=== PATIENT | female | born 1980 | race Two or more races ===

== ENCOUNTER 2016-11-23 14:29 | Emergency (ER) | payer MEDICAID ==
[~2016-11-23] VITALS: Ht 154.9 cm; Wt 72.6 kg
[2016-11-23 14:56] LABS: BASOPHILS # (AUTO) 0.1 /CMM (0.0-0.2); BASOPHILS % (AUTO) 0.6 % (0.0-2.0); DIFF TOTAL % 100 %; EOSINOPHILS # (AUTO) 0.1 /CMM (0.0-0.7); EOSINOPHILS % (AUTO) 1.7 % (0.0-6.0); HEMATOCRIT 39 % (33-45); HEMOGLOBIN 13.1 g/dL (11.5-14.8); LYMPHOCYTES # (AUTO) 2.4 /CMM (0.8-4.8); LYMPHOCYTES % (AUTO) 28.1 % (20.0-44.0); MEAN CORPUSCULAR HEMOGLOBIN 30 PG (26.0-33.0); MEAN CORPUSCULAR HGB CONC 33 g/dl (31.0-36.0); MEAN CORPUSCULAR VOLUME 91 fL (82-100); MONOCYTES # (AUTO) 0.6 /CMM (0.1-1.30); MONOCYTES % (AUTO) 7.1 % (2.0-12.0); NEUTROPHILS # (AUTO) 5.3 /CMM (1.8-8.9); NEUTROPHILS % (AUTO) 62.5 % (43.0-81.0); PLATELET COUNT (AUTO) 280 /CMM (150-450); RED BLOOD CELL COUNT(AUTO) 4.33 MIL/uL (4.0-5.2); WHITE BLOOD COUNT (AUTO) 8.5 K/uL (4.3-11.0)
[2016-11-23] MEDS ORDERED: IBUPROFEN 400 MG TABLET ONE (14:58)
[2016-11-23] MEDS: IBUPROFEN 400 MG TABLET PO ONE (15:02)
[2016-11-23 15:05] LABS: ANION GAP 13 (5-14); CALCIUM, SERUM 8.5 mg/dL (8.5-10.1); CARBON DIOXIDE 26 mmol/L (21-32); CHLORIDE 103 mmol/L (98-107); CREATININE 0.7 mg/dL (0.6-1.3); GFR 96 mL/min (>60); GLUCOSE 92 mg/dL (74-106); POTASSIUM 3.5 mmol/L (3.5-5.1); SODIUM SERUM 138 mmol/L (136-145); UREA NITROGEN, BLOOD 10 mg/dL (7-18)
[2016-11-23 15:15] LABS: INR 0.98 (0.87-1.13); PROTHROMBIN TIME 10.3 SECS (9.5-12.7); TROPONIN I < 0.017 ng/mL (0.00-0.056)
[2016-11-23 15:55] VITALS: BP 115/79
== END 2016-11-23 15:56 | disposition home or self-care (01) ==
LOC: ER 14:31
DX: M94.0 Chondrocostal junction syndrome [Tietze] (principal)
CPT/HCPCS: 36415; 71010; 80048; 84484; 85025; 85730; 93005; 99285; A4606; Z7610

== ENCOUNTER 2017-02-02 00:48 | Emergency (ER) | payer MEDICAID ==
[~2017-02-02] VITALS: Ht 152.4 cm; Wt 68.0 kg
[2017-02-02 00:53] VITALS: BP 136/90
[2017-02-02] MEDS ORDERED: IBUPROFEN 400 MG TABLET ONE (01:05)
[2017-02-02] MEDS ORDERED: IBUPROFEN 400 MG TABLET PO ONE (01:30)
== END 2017-02-02 01:16 | disposition home or self-care (01) ==
LOC: ER 00:49
DX: J06.9 Acute upper respiratory infection, unspecified (principal); B30.1 Conjunctivitis due to adenovirus; R51 Headache; G89.29 Other chronic pain; Z90.49 Acquired absence of other specified parts of digestive tract; Z98.890 Other specified postprocedural states
CPT/HCPCS: 99283; A4606; Z7610

== ENCOUNTER 2017-09-05 19:37 | Emergency (ER) | payer MEDICAID, OTHER ==
[~2017-09-05] VITALS: Ht 154.9 cm; Wt 68.0 kg
[2017-09-05 19:46] VITALS: BP 130/91
== END 2017-09-05 20:12 | disposition home or self-care (01) ==
LOC: ER 19:41
DX: J06.9 Acute upper respiratory infection, unspecified (principal)
CPT/HCPCS: 99281; A4606; Z7610; Z7502

== ENCOUNTER 2020-05-24 15:04 | Emergency (ER) | payer OTHER ==
[~2020-05-24] VITALS: Ht 154.9 cm; Wt 65.8 kg
--- NOTE | 2020-05-24 15:21 | NUR ---
PT TO ER BED 18 C/O FEVER, SOB AND HEADACHE FOR THE PAST 3 DAYS. PT IS CONCERN ABOUT COVID19 INFECTION. PT WORKS [employer]. [employer]. STABLE VITALS. AWAITING MD MCBRIDE.
--- NOTE | 2020-05-24 15:44 | NUR ---
DR OSORIO AT BEDSIDE FOR EVAL.
[2020-05-24 15:57] LABS: BASOPHILS # (AUTO) 0.1 /CMM (0.0-0.2); BASOPHILS % (AUTO) 0.6 % (0.0-2.0); EOSINOPHILS % (AUTO) 0.8 % (0.0-6.0); HEMATOCRIT 42 % (33-45); HEMOGLOBIN 13.8 g/dL (11.5-14.8); LYMPHOCYTES # (AUTO) 1.5 /CMM (0.8-4.8); LYMPHOCYTES % (AUTO) 16.6 % (20.0-44.0); MEAN CORPUSCULAR HGB CONC 33 g/dl (31.0-36.0); MEAN CORPUSCULAR VOLUME 98 fL (82-100); MONOCYTES # (AUTO) 0.8 /CMM (0.1-1.30); MONOCYTES % (AUTO) 8.8 % (2.0-12.0); NEUTROPHILS # (AUTO) 6.7 /CMM (1.8-8.9); NEUTROPHILS % (AUTO) 73.2 % (43.0-81.0); PLATELET COUNT (AUTO) 257 /CMM (150-450); RED BLOOD CELL COUNT(AUTO) 4.26 MIL/uL (4.0-5.2); WHITE BLOOD COUNT (AUTO) 9.2 K/uL (4.3-11.0)
[2020-05-24 16:23] LABS: CALCIUM, SERUM 8.9 mg/dL (8.5-10.1); CARBON DIOXIDE 27 mmol/L (21-32); CHLORIDE 103 mmol/L (98-107); CREATININE 0.8 mg/dL (0.6-1.3); GLUCOSE 92 mg/dL (74-106); POTASSIUM 3.9 mmol/L (3.5-5.1); SODIUM SERUM 136 mmol/L (136-145); UREA NITROGEN, BLOOD 16 mg/dL (7-18)
[2020-05-24 16:30] LABS: ALANINE AMINOTRANSFERASE 24 U/L (12-78); ALBUMIN 3.9 g/dL (3.4-5.0); ALKALINE PHOSPHATASE 78 U/L (46-116); ASPARTATE AMINOTRANSFERASE 15 U/L (15-37); BILIRUBIN,TOTAL 0.2 mg/dL (0.2-1.0); TOTAL PROTEIN, SERUM 7.5 g/dL (6.4-8.2)
--- NOTE | 2020-05-24 18:31 | NUR ---
Patient discharged to home in stable condition. Written and verbal after care instructions given. Patient verbalizes understanding of instruction.
[2020-05-24 18:33] VITALS: BP 124/73
== END 2020-05-24 18:34 | disposition home or self-care (01) ==
LOC: ER 15:20
DX: J06.9 Acute upper respiratory infection, unspecified (principal); Z20.828 Contact with and (suspected) exposure to other viral communicable diseases; R07.89 Other chest pain
CPT/HCPCS: 36415; 71045; 80053; 84484; 84702; 85025; 93005; 99285; C9803; U0003